=== PATIENT | female | born 1975 | race Caucasian/White ===

== ENCOUNTER 2016-12-21 14:20 | Day surgery (SDC) | payer OTHER ==
[~2016-12-21] VITALS: Ht 175.3 cm; Wt 93.4 kg
[~2016-12-21 14:20] MED LIST: DEPO-PROVER150 MG/ML IM; EQL IBUPROFEN200 MG PO
[2016-12-21 17:28] VITALS: BP 130/66
== END 2016-12-21 17:35 | disposition home or self-care (01) | DRG 379 ==
LOC: ENDO 14:20 → ORM 19:40 → ENDO 19:40
PROVIDERS: ATTEND Internal Medicine Gastroenterology
PROC: 0DBN7ZX Excision of Sigmoid Colon, Via Natural or Artificial Opening, Diagnostic (ICD-10-PCS; principal; 2016-12-21)
DX: K62.5 Hemorrhage of anus and rectum (principal); D12.5 Benign neoplasm of sigmoid colon; K64.4 Residual hemorrhoidal skin tags; K64.8 Other hemorrhoids; K57.30 Diverticulosis of large intestine without perforation or abscess without bleeding; K21.9 Gastro-esophageal reflux disease without esophagitis; R11.0 Nausea; Z80.0 Family history of malignant neoplasm of digestive organs